=== PATIENT | male | born 1935 | race Caucasian/White ===

== ENCOUNTER 2021-03-22 12:50 | Emergency (ER) | payer OTHER ==
[~2021-03-22] VITALS: Ht 175.3 cm; Wt 74.4 kg
[2021-03-22 12:50] VITALS: BP_SYST 158
[~2021-03-22 12:50] MED LIST: FLUT1DIS5 INH; HYDR12.55 PO; LANS15CA19 PO; LIP80 PO; LISI10TA29 PO; METO25TA3 PO; NITSL SL
[2021-03-22 17:48] VITALS: BP_SYST 134
== END 2021-03-22 15:37 | disposition home or self-care (01) ==
LOC: SED 12:50
DX: S09.90XA Unspecified injury of head, initial encounter (principal); I10 Essential (primary) hypertension; E78.00 Pure hypercholesterolemia, unspecified; Z88.8 Allergy status to other drugs, medicaments and biological substances; Z79.899 Other long term (current) drug therapy; W01.198A Fall on same level from slipping, tripping and stumbling with subsequent striking against other object, initial encounter; Y93.89 Activity, other specified; Y92.89 Other specified places as the place of occurrence of the external cause; Y99.8 Other external cause status
CPT/HCPCS: 70450-TC; 76376; 99284

== ENCOUNTER 2021-06-06 10:15 | Outpatient (CLI) | payer OTHER | END 2021-06-06 19:02 | disposition home or self-care (01) | LOC: SCT 10:15 | PROVIDERS: ATTEND Psychiatry & Neurology Neurology with Special Qualifications in Child Neurology | DX: G31.89 Other specified degenerative diseases of nervous system (principal); G93.89 Other specified disorders of brain; G20 Parkinson's disease; G43.709 Chronic migraine without aura, not intractable, without status migrainosus | CPT/HCPCS: 70450-TC; 76376 ==

== ENCOUNTER 2021-06-20 13:09 | Emergency (ER) | payer OTHER ==
[~2021-06-20] VITALS: Ht 175.3 cm; Wt 74.8 kg
[2021-06-20 13:10] VITALS: BP_SYST 143
[2021-06-20 14:48] LABS: BASOPHILS # (AUTO) 0.1 K/uL (0.0-0.2); BASOPHILS % (AUTO) 0.7 % (0.0-2.0); EOSINOPHILS # (AUTO) 0.2 K/uL (0.0-0.4); EOSINOPHILS % (AUTO) 2.9 % (0.0-4.0); HEMATOCRIT 36.2 % (36-54); HEMOGLOBIN 12.9 g/dL (14.0-18.0); LYMPHOCYTES % (AUTO) 13.6 % (20.5-51.5); MEAN CORPUSCULAR HEMOGLOBIN 32 pg (27-31); MEAN CORPUSCULAR HGB CONC 36 % (32-36); MEAN CORPUSCULAR VOLUME 90 fL (79.0-98.0); MONOCYTES # (AUTO) 0.5 K/uL (0.0-1.0); MONOCYTES % (AUTO) 6.8 % (1.7-9.3); NEUTROPHILS # (AUTO) 5.5 K/uL (1.8-7.7); PLATELET COUNT (AUTO) 198 K/uL (130-430); RED BLOOD CELL COUNT(AUTO) 4.05 MIL/uL (4.2-6.2); WHITE BLOOD COUNT (AUTO) 7.3 K/uL (4.8-10.8)
[2021-06-20 14:49] LABS: ANION GAP 5 (5-15); CALCIUM 8.3 mg/dL (8.4-11.0); CHLORIDE 100 mmol/L (98-107); GLUCOSE 81 mg/dL (70-99); POTASSIUM 4.1 mmol/L (3.5-5.1); SODIUM SERUM 135 mmol/L (136-145); TOTAL BILIRUBIN 0.8 mg/dL (0.0-1.0); UREA NITROGEN, BLOOD 17 mg/dL (8-21)
[2021-06-20 14:50] LABS: ALANINE AMINOTRANSFERASE 16 U/L (12-78); ALBUMIN 3.5 g/dL (3.4-4.8); ASPARTATE AMINOTRANSFERASE 17 U/L (10-37)
[2021-06-20 16:15] LABS: BILIRUBIN,URINE NEGATIVE (NEGATIVE); BLOOD, URINE NEGATIVE (NEGATIVE); CLARITY/URINE CLOUDY (CLEAR); COLOR,URINE YELLOW (YELLOW); GLUCOSE,URINE NEGATIVE (NEGATIVE); KETONES,URINE NEGATIVE (NEGATIVE); LEUKOCYTE ESTERASE ,URINE NEGATIVE (NEGATIVE); NITRITE, URINE NEGATIVE (NEGATIVE); PH,URINE 7.5 (5.0-8.0); PROTEIN URINE NEGATIVE (NEGATIVE); UROBILINOGEN,URINE 0.2 (0.2-1.0)
[2021-06-20 16:54] VITALS: BP_SYST 131
== END 2021-06-20 16:56 | disposition home or self-care (01) ==
LOC: SED 13:09
DX: S00.83XA Contusion of other part of head, initial encounter (principal); G20 Parkinson's disease; I10 Essential (primary) hypertension; E78.00 Pure hypercholesterolemia, unspecified; Z88.8 Allergy status to other drugs, medicaments and biological substances; Z79.899 Other long term (current) drug therapy; W18.39XA Other fall on same level, initial encounter; Y93.89 Activity, other specified; Y92.89 Other specified places as the place of occurrence of the external cause; Y99.8 Other external cause status
CPT/HCPCS: 36415; 70450-TC; 72125-TC; 80053; 81003; 84484; 85025; 93005; 99285